=== PATIENT | female | born 1975 | race Caucasian/White ===

== ENCOUNTER 2018-12-16 14:26 | Emergency (ER) | payer OTHER ==
[2018-12-16] MEDS ORDERED: MECL12.5 PO (14:32)
--- NOTE | 2018-12-16 14:39 | ER Report ---
History and Physical Time Seen By MD: 14:39 Hx. of Stated Complaint: VERTIGO, N/V HPI/ROS CHIEF COMPLAINT: Vertigo with nausea and vomiting HISTORY OF PRESENT ILLNESS: 43 year old female presents to ED with vertigo and nausea with vomiting. Patient reports that about 3 weeks ago she was cleaning the bathtub and aggravated an old cervical injury that caused neck pain and stiffness. 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 Reports associated symptoms of vertigo at that time. Patient went to urgent care and was given meclazine and a PT referral for vestibular maneuvers. Reports that the meclazine and maneuvers helped to decrease her vertigo, but did not get rid of it completely. Last night her vertigo started to worsen, she took a meclazine with no relief. Her vertigo became worse this morning with an inability to walk due to the dizziness. States that the room is moving to the left and it is hard to focus. Reports nausea and vomiting set in around 1230 today. Reports she took a meclazine, again with no relief. States she has had persistent vomiting since 1230. Denies bloody vomit. Reports headache pain behind right orbit, states the pain is sharp and stabbing. Denies fevers, but does report sweating with the vertigo. REVIEW OF SYSTEMS: Constitutional: Denies fevers, changes in appetite. Respiratory: No cough, no dyspnea. Cardiovascular: No chest pain, no palpitations. Gastrointestinal: Reports nausea and vomiting. Has had persistent vomiting since 1230. Denies abdominal pain. Musculoskeletal: No back pain. Reports neck stiffness located on the right side. Denies neck and shoulder pain. Neurological: Reports vertigo- states the room is moving to the left. Reports it is hard to focus on objects. States the dizziness is so bad that she is unable to walk. She stood up earlier this afternoon, and had to sit right back down due to the dizziness. Reports headache pain behind the orbit that is sharp and stabbing. Allergies: Coded Allergies: NSAIDS (Non-Steroidal Anti-Inflamma (Verified Allergy, Mild, RASH, 12/16/18) cinnamon (Verified Allergy, Mild, RASH, 12/16/18) Home Meds Active Scripts Lorazepam (LORAZEPAM) 0.5 Mg Tablet, 0.5 MG PO TID PRN for DIZZINESS, #15 TAB Prov:DILMA BROWN [facility] 12/16/18 Scopolamine (Scopolamine) 1 Mg/3 Day Patch.td.3, 1 PATCH.72H TD Q3D PRN for DIZZINESS, #3 PATCH.72H Prov:DILMA BROWN [facility] 12/16/18 Ondansetron 4 Mg Odt (ONDANSETRON 4 MG ODT) 4 Mg Tab.rapdis, 4 MG PO Q6H PRN for NAUSEA/VOMITING, #20 TAB Prov:DILMA BROWN [facility] 12/16/18 Clonidine Hcl (CLONIDINE HCL) 0.1 Mg Tablet, 0.1 MG PO BID PRN for HYPERTENSION, #20 TAB Take 1 tab twice a day as needed for blood pressure greater than 155/95 Prov:DILMA BROWN [facility] 12/16/18 Reported Medications Meclizine Hcl (MECLIZINE HCL) 12.5 Mg Tablet, 25 MG PO ONCE 12/16/18 Past Medical/Surgical History Reports significant past medical history of seizures from a previous head injury, migraines. Denies significant past surgical history. Reviewed Nurses Notes: Yes Constitutional Vital Sign - Last 24 Hours 12/16/18 12/16/18 12/16/18 12/16/18 14:29 14:31 15:00 15:30 Temp 97.6 Pulse 90 92 89 Resp 20 B/P (MAP) 187/105 187/105 (132) 175/95 (121) 174/99 (124) Pulse Ox 100 98 100 12/16/18 12/16/18 12/16/18 12/16/18 16:00 16:30 17:00 17:30 Pulse 92 100 99 93 B/P (MAP) 173/101 (125) 175/112 (133) 162/95 (117) 154/94 (114) Pulse Ox 93 95 93 90 12/16/18 17:42 B/P (MAP) 174/110 (131) Physical Exam General Appearance: The patient is alert, has no immediate need for airway protection and no signs of toxicity. Eyes: Pupils equal and round, reactive to light, no pallor or injection. Extraocular movements intact. Nystagmus noted with eye movement to the right. ENT, Mouth: Mucous membranes are moist. TMs pearly morales and bulging bilaterally. external canal with erythema. Respiratory: There are no retractions, lungs are clear to auscultation. Cardiovascular: Regular rate and rhythm. Gastrointestinal: Abdomen is soft and non tender, no masses, bowel sounds normal. Neurological: Negative brudzinski sign. positive veena-hallpike maneuver with head turn to the left. Skin: Warm and dry, no rashes. Musculoskeletal: Neck is supple non tender. With palpation to right side of neck, patient reports it feels good. Extremities are nontender, nonswollen and have full range of motion. DIFFERENTIAL DIAGNOSIS: After history and physical exam differential diagnosis was considered for brain hemorrhage, BPPV, vertigo, cervical injury, NC, UTI, pneumonia. Medical Decision Making Data Points Result Diagram: 12/16/18 1420 12/16/18 1420 Laboratory Hematology Test 12/16/18 00:00 12/16/18 14:20 12/16/18 15:05 Prothrombin Time 13.8 seconds (12.0-14.4) Prothromb Time International Ratio 1.06 Activated Partial Thromboplast Time 28 seconds (23-35) Red Blood Count 5.25 M/uL (4.17-5.56) Mean Corpuscular Volume 64.8 fL (80.0-96.0) Mean Corpuscular Hemoglobin 19.2 pg (26.0-33.0) Mean Corpuscular Hemoglobin Concent 29.7 g/dL (32.0-36.0) Red Cell Distribution Width 20.0 % (11.5-14.5) Mean Platelet Volume 8.3 fL (7.2-11.1) Neutrophils (%) (Auto) 76.9 % (39.4-72.5) Lymphocytes (%) (Auto) 16.4 % (17.6-49.6) Monocytes (%) (Auto) 5.3 % (4.1-12.4) Eosinophils (%) (Auto) 0.4 % (0.4-6.7) Basophils (%) (Auto) 1.0 % (0.3-1.4) Nucleated RBC Relative Count (auto) 0.0 /100WBC Neutrophils # (Auto) 10.7 K/uL (2.0-7.4) Lymphocytes # (Auto) 2.3 K/uL (1.3-3.6) Monocytes # (Auto) 0.7 K/uL (0.3-1.0) Eosinophils # (Auto) 0.1 K/uL (0.0-0.5) Basophils # (Auto) 0.1 K/uL (0.0-0.1) Nucleated RBC Absolute Count (auto) 0.00 K/uL Peripheral Blood Smear Yes Y/N Sodium Level 137 mmol/L (137-145) Potassium Level 3.2 mmol/L (3.5-5.0) Chloride Level 104 mmol/L (98-107) Carbon Dioxide Level 17 mmol/L (22-31) Blood Urea Nitrogen 12 mg/dl (7-18) Creatinine 0.60 mg/dl (0.52-1.04) Glomerular Filtration Rate Calc > 60.0 Random Glucose 194 mg/dl (75-110) Calcium Level 9.8 mg/dl (8.4-10.2) Total Bilirubin 0.3 mg/dl (0.2-1.3) Aspartate Amino Transf (AST/SGOT) 17 U/L (0-35) Alanine Aminotransferase (ALT/SGPT) 23 U/L (0-56) Alkaline Phosphatase 101 U/L (0-126) Troponin I < 0.012 ng/ml Total Protein 8.6 g/dl (6.3-8.2) Albumin 5.0 g/dl (3.5-5.0) Urine Color Straw Urine Clarity Clear Urine pH 7.0 pH (4.8-9.5) Urine Specific [place] 1.012 Urine Protein Negative mg/dL (NEGATIVE) Urine Glucose (UA) 150 mg/dL (NEGATIVE) Urine Ketones 20 mg/dL (NEGATIVE) Urine Blood Negative (NEGATIVE) Urine Nitrite Negative (NEGATIVE) Urine Bilirubin Negative (NEGATIVE) Urine Urobilinogen Negative mg/dL (0.2-1.9) Urine Leukocyte Esterase Negative (NEGATIVE) Urine RBC <1 /HPF (0-2/HPF) Urine WBC 1 /HPF (0-5/HPF) Urine Squamous Epithelial Cells None /LPF (NONE-FEW) Urine Bacteria Negative /HPF (NONE-FEW) Urine Mucus None /HPF (NONE-FEW) Chemistry Test 12/16/18 00:00 12/16/18 14:20 12/16/18 15:05 Prothrombin Time 13.8 seconds (12.0-14.4) Prothromb Time International Ratio 1.06 Activated Partial Thromboplast Time 28 seconds (23-35) White Blood Count 14.0 k/uL (4.5-11.0) Red Blood Count 5.25 M/uL (4.17-5.56) Hemoglobin 10.1 g/dL (12.0-16.0) Hematocrit 34.0 % (34.0-47.0) Mean Corpuscular Volume 64.8 fL (80.0-96.0) Mean Corpuscular Hemoglobin 19.2 pg (26.0-33.0) Mean Corpuscular Hemoglobin Concent 29.7 g/dL (32.0-36.0) Red Cell Distribution Width 20.0 % (11.5-14.5) Platelet Count 462 K/uL (150-450) Mean Platelet Volume 8.3 fL (7.2-11.1) Neutrophils (%) (Auto) 76.9 % (39.4-72.5) Lymphocytes (%) (Auto) 16.4 % (17.6-49.6) Monocytes (%) (Auto) 5.3 % (4.1-12.4) Eosinophils (%) (Auto) 0.4 % (0.4-6.7) Basophils (%) (Auto) 1.0 % (0.3-1.4) Nucleated RBC Relative Count (auto) 0.0 /100WBC Neutrophils # (Auto) 10.7 K/uL (2.0-7.4) Lymphocytes # (Auto) 2.3 K/uL (1.3-3.6) Monocytes # (Auto) 0.7 K/uL (0.3-1.0) Eosinophils # (Auto) 0.1 K/uL (0.0-0.5) Basophils # (Auto) 0.1 K/uL (0.0-0.1) Nucleated RBC Absolute Count (auto) 0.00 K/uL Peripheral Blood Smear Yes Y/N Glomerular Filtration Rate Calc > 60.0 Calcium Level 9.8 mg/dl (8.4-10.2) Total Bilirubin 0.3 mg/dl (0.2-1.3) Aspartate Amino Transf (AST/SGOT) 17 U/L (0-35) Alanine Aminotransferase (ALT/SGPT) 23 U/L (0-56) Alkaline Phosphatase 101 U/L (0-126) Troponin I < 0.012 ng/ml Total Protein 8.6 g/dl (6.3-8.2) Albumin 5.0 g/dl (3.5-5.0) Urine Color Straw Urine Clarity Clear Urine pH 7.0 pH (4.8-9.5) Urine Specific [place] 1.012 Urine Protein Negative mg/dL (NEGATIVE) Urine Glucose (UA) 150 mg/dL (NEGATIVE) Urine Ketones 20 mg/dL (NEGATIVE) Urine Blood Negative (NEGATIVE) Urine Nitrite Negative (NEGATIVE) Urine Bilirubin Negative (NEGATIVE) Urine Urobilinogen Negative mg/dL (0.2-1.9) Urine Leukocyte Esterase Negative (NEGATIVE) Urine RBC <1 /HPF (0-2/HPF) Urine WBC 1 /HPF (0-5/HPF) Urine Squamous Epithelial Cells None /LPF (NONE-FEW) Urine Bacteria Negative /HPF (NONE-FEW) Urine Mucus None /HPF (NONE-FEW) Coagulation Test 12/16/18 00:00 Prothrombin Time 13.8 seconds Prothromb Time International Ratio 1.06 Activated Partial Thromboplast Time 28 seconds Urinalysis Test 12/16/18 15:05 Urine Color Straw Urine Clarity Clear Urine pH 7.0 pH (4.8-9.5) Urine Specific [place] 1.012 Urine Protein Negative mg/dL (NEGATIVE) Urine Glucose (UA) 150 mg/dL (NEGATIVE) Urine Ketones 20 mg/dL (NEGATIVE) Urine Blood Negative (NEGATIVE) Urine Nitrite Negative (NEGATIVE) Urine Bilirubin Negative (NEGATIVE) Urine Urobilinogen Negative mg/dL (0.2-1.9) Urine Leukocyte Esterase Negative (NEGATIVE) Urine RBC <1 /HPF (0-2/HPF) Urine WBC 1 /HPF (0-5/HPF) Urine Squamous Epithelial Cells None /LPF (NONE-FEW) Urine Bacteria Negative /HPF (NONE-FEW) Urine Mucus None /HPF (NONE-FEW) EKG/Imaging EKG Interpretation 12 lead EKG: Rhythm: normal sinus rhythm [place]: normal QRS: normal ST segments: normal, patient does have prolonged QT, measuring 408 and 504 corrected. Imaging Cervical spine CT: FINDINGS: CT head: No intracranial bleed, midline shift, mass effect, extra-axial fluid collection or hydrocephalus. No abnormal density. Hernandez/white matter differentiation appears normal. Bony structures show no fractures or lesions. Sinuses and mastoids visualized are clear. CT cervical spine: The vertebral bodies are aligned. No fracture or facet dislocation. No bony lesions. Zpki-fe-vroqsstd degenerative changes are seen from the C4-C7 levels including disc space narrowing, endplate changes, osteophytes and facet arthropathy. Prominent posterior central osteophytes are present at the C5-6 and C6-7 levels. These cause mild narrowing of the canal and likely effacement of the anterior thecal sac. The canal narrowing measures 9 mm at each level. No other bony canal stenosis. No appreciable neural foramina narrowing. The endplates are maintained. No obvious disc herniation. Prevertebral soft tissues are unremarkable. Lung apices show a 3 x 3 mm noncalcified nodule in the right ureter otherwise clear. IMPRESSION: 1. No acute intracranial abnormality. 2. No acute osseous or acute alignment abnormality of the cervical spine. Degenerative changes as described above. Mild canal bony narrowing at C5-6 and C6-7 levels. 3. 3 mm noncalcified lung nodule in the right apex. This is too small characterize. Suggest follow-up per Fleischner guidelines described below. Head CT: FINDINGS: CT head: No intracranial bleed, midline shift, mass effect, extra-axial fluid collection or hydrocephalus. No abnormal density. Hernandez/white matter differentiation appears normal. Bony structures show no fractures or lesions. Sinuses and mastoids visualized are clear. CT cervical spine: The vertebral bodies are aligned. No fracture or facet dislocation. No bony lesions. Yepl-er-enjfrids degenerative changes are seen from the C4-C7 levels including disc space narrowing, endplate changes, osteophytes and facet arthropathy. Prominent posterior central osteophytes are present at the C5-6 and C6-7 levels. These cause mild narrowing of the canal and likely effacement of the anterior thecal sac. The canal narrowing measures 9 mm at each level. No other bony canal stenosis. No appreciable neural foramina narrowing. The endplates are maintained. No obvious disc herniation. Prevertebral soft tissues are unremarkable. Lung apices show a 3 x 3 mm noncalcified nodule in the right ureter otherwise clear. IMPRESSION: 1. No acute intracranial abnormality. 2. No acute osseous or acute alignment abnormality of the cervical spine. Degenerative changes as described above. Mild canal bony narrowing at C5-6 and C6-7 levels. 3. 3 mm noncalcified lung nodule in the right apex. This is too small c haracterize. Suggest follow-up per Fleischner guidelines described below. Chest x-ray: FINDINGS: The cardiomediastinal silhouette is of normal size and contour. No pleural effusion. No pneumothorax. No consolidation. The lungs are adequately expanded. IMPRESSION: No acute findings. ED Course/Re-evaluation ED Course Patient admitted to an exam room, history and physical obtained, differentials considered. Presents to the ED via EMS with vertigo with nausea and vomiting. Patient reports that about 3 weeks ago she was cleaning the bathtub and aggravated an old cervical injury that caused neck pain and stiffness. 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 Reports associated symptoms of vertigo at that time. Patient went to urgent care and was given meclazine and a PT referral for vestibular maneuvers. Reports that the meclazine and maneuvers helped to decrease her vertigo, but did not get rid of it completely. Last night her vertigo started to worsen, she took a half-tab meclazine with no relief. Her vertigo became worse this morning. States that the room is moving to the left and it is hard to focus. Reports nausea and vomiting set in around 1230 today and the vomiting is persistent. Reports she took a meclazine, again with no relief. Reports headache pain behind right orbit, states the pain is sharp and stabbing. PERRLA, extraocular movements intact with nystagmus noted with eye movement to the right. Negative Brudzinski sign. Positive veena-halpike maneuver with head turn to the left. CBC, CMP, troponin, EKG, C-spine, head CT, chest x- ray, UA, PT/PTT collected. Zofran 4mg IV given. Reprots zofran helped the nausea and decreased her vertigo slightly. Lorazepam 1mg and scopolamine TD given. After about 30 minutes, patient reports no nausea and significantly decreased dizziness. CBC consistent with demargination due to vomiting- WBC 14 and Neutrophils 76.9%. Urine with signs of dehydration due to glucose and ketones in the urine. Coag studies normal. No acute findings on chest x-ray. Blood pressure consistently elevated throughout ED stay. 10mg lebatolol IV given. Blood pressure came down to 154/94. Patients dizziness likely due to BPPV. Patient to continue with PT appointments. Will send home with scopolamine, lorazepam, and zofran for the symptoms and clonidine for the blood pressure. Patient reports she feels much better and agrees with plan of care. Decision to Disposition Date: Dec 16, 2018 Decision to Disposition Time: 17:49 Depart Departure Latest Vital Signs Vital Signs Date Time Temp Pulse Resp B/P (MAP) Pulse Ox O2 Delivery O2 Flow Rate FiO2 12/16/18 17:42 174/110 (131) 12/16/18 17:30 93 90 12/16/18 14:29 97.6 20 Impression: Primary Impression: Benign paroxysmal positional vertigo Additional Impression: Hypertension Condition: Improved Disposition: HOME OR SELF-CARE New Scripts Lorazepam (LORAZEPAM) 0.5 Mg Tablet 0.5 MG PO TID PRN for DIZZINESS, #15 TAB Prov: DILMA BROWN 12/16/18 Scopolamine (Scopolamine) 1 Mg/3 Day Patch.td.3 1 PATCH.72H TD Q3D PRN for DIZZINESS, #3 PATCH.72H Prov: DILMA BROWN 12/16/18 Ondansetron 4 Mg Odt (ONDANSETRON 4 MG ODT) 4 Mg Tab.rapdis 4 MG PO Q6H PRN for NAUSEA/VOMITING, #20 TAB Prov: DILMA BROWN 12/16/18 Clonidine Hcl (CLONIDINE HCL) 0.1 Mg Tablet 0.1 MG PO BID PRN for HYPERTENSION, #20 TAB Take 1 tab twice a day as needed for blood pressure greater than 155/95 Prov: DILMA BROWN 12/16/18 Patient Instructions: Benign Paroxysmal Positional Vertigo (ED) Additional Instructions: Increase fluid intake. Get plenty of rest. Follow up with your primary care provider in the next week. Take the medications as prescribed. Return to the ER if condition worsens. This should improve in the next 1-2 weeks. Problem Qualifiers Primary Impression: Benign paroxysmal positional vertigo Laterality: left Qualified Codes: H81.12 - Benign paroxysmal vertigo, left ear Additional Impression: Hypertension Hypertension type: essential hypertension Qualified Codes: I10 - Essential (primary) hypertension DILMA BROWN Dec 16, 2018 14:39
[2018-12-16] MEDS ORDERED: EMS NS 0.9%(*) 1000 ML BAG 1,000 ML IV ONE (14:40)
[2018-12-16] MEDS ORDERED: ONDANSETRON 4 MG/2 ML VIAL IVP ONE (14:40)
--- NOTE | 2018-12-16 14:53 | EKG ---
FACILITY: [facility] [place] PATIENT NAME: ENRIQUE TAYLOR : [id number] MR: [id number] V: [id number] EXAM DATE: ORDERING PHYSICIAN: DILMA BROWN TECHNOLOGIST: DAVID Test Reason : VERTIGO Blood Pressure : / mmHG Vent. Rate : 092 BPM Atrial Rate : 092 BPM P-R Int : 170 ms QRS Dur : 088 ms QT Int : 408 ms P-R-T Axes : 046 023 066 degrees QTc Int : 504 ms Normal sinus rhythm Prolonged QT Abnormal ECG No previous ECGs available Confirmed by JOBY BORJA ([id number]) on 12/17/2018 6:36:37 AM Referred By: DILMA Confirmed By:JOBY BORJA
[2018-12-16 15:06] LABS: PLATELET COUNT, AUTOMATED 462 K/uL (150-450)
[2018-12-16 15:14] LABS: INR 1.06
--- NOTE | 2018-12-16 15:30 | RADIOLOGY IMAGING REPORT ---
FACILITY: [facility] PATIENT NAME: Tyson Devi : 1975 MR: [id number] V: [id number] EXAM DATE: ORDERING PHYSICIAN: DILMA BROWN TECHNOLOGIST: Location: [facility] [place] Patient: Tyson Devi : 1975 Visit/Account:[id number] Date of Sevice: 12/16/2018 HISTORY: Chest pain and dizziness. Fell 2 days ago. DATE: 12/16/2018 2:46 PM TECHNIQUE: CHEST SINGLE AP COMPARISON: none FINDINGS: The cardiomediastinal silhouette is of normal size and contour. No pleural effusion. No pne umothorax. No consolidation. The lungs are adequately expanded. IMPRESSION: No acute findings. Report Dictated By: Jaun Spann MD at 12/16/2018 3:25 PM Report E-Signed By: Jaun Spann MD at 12/16/2018 3:26 PM WSN:[id number]
[2018-12-16] MEDS ORDERED: SCOPOLAMINE 1.5 MG PATCH TD ONE (15:35)
[2018-12-16] MEDS ORDERED: LORazepam 2 MG/ML VIAL IVP ONE (15:35)
--- NOTE | 2018-12-16 16:10 | RADIOLOGY IMAGING REPORT ---
FACILITY: [facility] - [place] PATIENT NAME: Tyson Devi : 1975 MR: [id number] V: [id number] EXAM DATE: ORDERING PHYSICIAN: DILMA BROWN TECHNOLOGIST: Location: [facility] Patient: Tyson Devi : 1975 Visit/Account:[id number] Date of Sevice: 12/16/2018 CT Head without contrast and CT Cervical spine: Indication: Dizziness and neck pain. Comparison: None available Technique: CT head: Axial CT images were obtained through the brain from the skull base to the verte x without administration of IV contrast. Reformatted coronal and sagittal images were also obtained. Technique: CT cervical spine: Axial CT imaging of the cervical spine was performed. 2-D sagittal and coronal CT reformats were also obtained. One of the following dose optimization techniques was utilized in the performance of this exam: Autom ated exposure control; adjustment of the mA and/or kV according to the patient's size; or use of an i terative reconstruction technique. Specific details can be referenced in the facility's radiology C T exam operational policy. FINDINGS: CT head: No intracranial bleed, midline shift, mass effect, extra-axial fluid collection or hydrocephalus. No abnormal density. Hernandez/white matter differentiation appears normal. Bony structures show no fractures or lesions. Sinuses and mastoids visualized are clear. CT cervical spine: The vertebral bodies are aligned. No fracture or facet dislocation. No bony lesions. Pxrm-fn-littpjnt degenerative changes are seen from the C4-C7 levels including disc space narrowing, endplate changes , osteophytes and facet arthropathy. Prominent posterior central osteophytes are present at the C5-6 and C6-7 levels. These cause mild narrowing of the canal and likely effacement of the anterior thecal sac. The canal narrowing measures 9 mm at each level. No other bony canal stenosis. No appreciable n eural foramina narrowing. The endplates are maintained. No obvious disc herniation. Prevertebral soft tissues are unremarkable. Lung apices show a 3 x 3 mm noncalcified nodule in the right ureter otherw ise clear. IMPRESSION: 1. No acute intracranial abnormality. 2. No acute osseous or acute alignment abnormality of the cervical spine. Degenerative changes as matt cribed above. Mild canal bony narrowing at C5-6 and C6-7 levels. 3. 3 mm noncalcified lung nodule in the right apex. This is too small characterize. Suggest follow-up per Fleischner guidelines described below. FLEISCHNER SOCIETY FOLLOW-UP GUIDELINES FOR NEWLY DETECTED INCIDENTAL NODULES IN PERSONS 35 YEARS OF AGE OR OLDER. *These recommendations do NOT apply to lung cancer screening, patients with immunosuppression or kain ents with a known primary malignancy. NODULE(S) IDENTIFIED ON INCOMPLETE CHEST If nodule size is < 6 mm: * No further investigation on the basis of the estimated low risk of malignancy. If nodule size is 6-8 mm: * Follow-up CT of the complete chest after 3-12 months (depending on clinical risk), to confirm stab ility and to evaluate additional findings. If nodule size is > 8 mm or otherwise very suspicious: * Dedicated complete thoracic CT recommended. LOW RISK PATIENT: Minimal or absent history of tobacco use and of other known risk factors. HIGH RISK PATIENT: Tobacco use, family history of lung cancer, upper pulmonary lobe location of nodul e, presence of emphysema, pulmonary fibrosis, older age. Ellis H, Phong DP, Jeannie JACQUES, et al. Guidelines for Management of Incidental Pulmonary Nodules Dete cted on CT Images: From the Fleischner Society 2017. Radiology. [facility] Report Dictated By: Phil Spring at 12/16/2018 3:52 PM Report E-Signed By: Phil Spring at 12/16/2018 4:06 PM WSN:[id number]
--- NOTE | 2018-12-16 16:11 | RADIOLOGY IMAGING REPORT ---
FACILITY: [facility] - [place] PATIENT NAME: Tyson Devi : 1975 MR: [id number] V: [id number] EXAM DATE: ORDERING PHYSICIAN: DILMA BROWN TECHNOLOGIST: [place] [facility] [place] Dev[place] : 1975 Visit/Account:[id number] Date of Sevice: 12/16/2018 CT Head without contrast and CT Cervical spine: Indication: Dizziness and neck pain. Comparison: None available Technique: CT head: Axial CT images were obtained through the brain from the skull base to the verte x without administration of IV contrast. Reformatted coronal and sagittal images were also obtained. Technique: CT cervical spine: Axial CT imaging of the cervical spine was performed. 2-D sagittal and coronal CT reformats were also obtained. One of the following dose optimization techniques was utilized in the performance of this exam: Autom ated exposure control; adjustment of the mA and/or kV according to the patient's size; or use of an i terative reconstruction technique. Specific details can be referenced in the facility's radiology C T exam operational policy. FINDINGS: CT head: No intracranial bleed, midline shift, mass effect, extra-axial fluid collection or hydrocephalus. No abnormal density. Hernandez/white matter differentiation appears normal. Bony structures show no fractures or lesions. Sinuses and mastoids visualized are clear. CT cervical spine: The vertebral bodies are aligned. No fracture or facet dislocation. No bony lesions. [id number]-bn-hhrplpps degenerative changes are seen from the C4-C7 levels including disc space narrowing, endplate changes , osteophytes and facet arthropathy. Prominent posterior central osteophytes are present at the C5-6 and C6-7 levels. These cause mild narrowing of the canal and likely effacement of the anterior thecal sac. The canal narrowing measures 9 mm at each level. No other bony canal stenosis. No appreciable n eural foramina narrowing. The endplates are maintained. No obvious disc herniation. Prevertebral soft tissues are unremarkable. Lung apices show a 3 x 3 mm noncalcified nodule in the right ureter otherw ise clear. IMPRESSION: 1. No acute intracranial abnormality. 2. No acute osseous or acute alignment abnormality of the cervical spine. Degenerative changes as matt cribed above. Mild canal bony narrowing at C5-6 and C6-7 levels. 3. 3 mm noncalcified lung nodule in the right apex. This is too small characterize. Suggest follow-up per Fleischner guidelines described below. FLEISCHNER SOCIETY FOLLOW-UP GUIDELINES FOR NEWLY DETECTED INCIDENTAL NODULES IN PERSONS 35 YEARS OF AGE OR OLDER. *These recommendations do NOT apply to lung cancer screening, patients with immunosuppression or kain ents with a known primary malignancy. NODULE(S) IDENTIFIED ON INCOMPLETE CHEST If nodule size is < 6 mm: * No further investigation on the basis of the estimated low risk of malignancy. If nodule size is 6-8 mm: * Follow-up CT of the complete chest after 3-12 months (depending on clinical risk), to confirm stab ility and to evaluate additional findings. If nodule size is > 8 mm or otherwise very suspicious: * Dedicated complete thoracic CT recommended. LOW RISK PATIENT: Minimal or absent history of tobacco use and of other known risk factors. HIGH RISK PATIENT: Tobacco use, family history of lung cancer, upper pulmonary lobe location of nodul e, presence of emphysema, pulmonary fibrosis, older age. Ellis H, Phong DP, Jeannie JACQUES, et al. Guidelines for Management of Incidental Pulmonary Nodules Dete cted on CT Images: From the Fleischner Society 2017. Radiology. [facility] Report Dictated By: Phil Spring at 12/16/2018 3:52 PM Report E-Signed By: Phil Spring at 12/16/2018 4:06 PM WSN:[id number]
[2018-12-16 17:42] VITALS: BP 174/110
[2018-12-16] MEDS ORDERED: LORA-630 PO (17:46)
[2018-12-16] MEDS ORDERED: SCOP1PAT16 TD (17:46)
[2018-12-16] MEDS ORDERED: ONDA4TAB9 PO (17:46)
[2018-12-16] MEDS ORDERED: CLON-327 PO (17:46)
== END 2018-12-16 17:56 | disposition home or self-care (01) ==
LOC: ER 14:38
DX: H81.10 Benign paroxysmal vertigo, unspecified ear (principal); I10 Essential (primary) hypertension; R07.9 Chest pain, unspecified
CPT/HCPCS: 70450; 71045; 72125; 81001; 84484; 85025; 85610; 85730; 93005; 96361; 96374; 96375; 99284; J2060; J2405; 82040; 82247; 82310; 82374; 82435; 82565; 82947; 84075; 84132; 84155; 84295; 84450; 84460; 84520

== ENCOUNTER → 2018-12-16 | Outpatient (CLI) | payer OTHER ==
[~2018-12-16] MED LIST: CLON-327 PO; LORA-630 PO; MECL12.5 PO; ONDA4TAB9 PO; SCOP1PAT16 TD
== END ==
LOC: AMB 13:57
PROVIDERS: ATTEND Nurse Practitioner
DX: R11.2 Nausea with vomiting, unspecified (principal); H81.10 Benign paroxysmal vertigo, unspecified ear; M54.2 Cervicalgia; R42 Dizziness and giddiness
CPT/HCPCS: A0425; A0427